=== PATIENT | male | born 1985 | race Caucasian/White ===

== ENCOUNTER 2021-08-17 11:03 | Outpatient (REF) | payer OTHER, SELFPAY ==
--- NOTE | ~2021-08-17 | XR_ITS ---
EXAMINATION: XR CERVICAL SPINE CLINICAL INFORMATION: History of neck pain. COMPARISON: Prior radiographs from 03/01/2020. TECHNIQUE: 3 views of the cervical spine were obtained. FINDINGS: The craniocervical junction is normal. The dens and atlantodental articulation are intact. The cervical vertebra have normal height. Alignment is normal. No fracture, subluxation or prevertebral soft tissue swelling. There is chronic lack of lordotic curvature of the degenerated cervical spine. Dqtz-oc-[id number] disc space narrowing and osteophyte formation at C5-C6 and C6-C7. The facet joints are unremarkable. The visualized lung apices are normal. XR/XR cervical spine 3V IMPRESSION: Chronic discovertebral degenerative changes at C5-C6 and C6-C7. The degenerative arthropathy of the cervical spine has a stable appearance compared to 03/01/2020. No new abnormality. There is chronic lack of lordotic fracture of the degenerated spine.
== END 2021-08-17 11:04 | disposition home or self-care (01) ==
LOC: HO.HMGCX 11:03
PROVIDERS: PCP Nurse Practitioner Family; Visit Provider Nurse Practitioner Family
DX: M50.90 Cervical disc disorder, unspecified, unspecified cervical region (principal)
CPT/HCPCS: 72040

== ENCOUNTER 2021-11-07 17:00 | Outpatient (RCR) | payer OTHER, SELFPAY ==
--- NOTE | 2021-09-26 17:26 | MHC.PT.EP ---
[facility] [place] Office [place] Office [place] Office [address] [place] [address] [phone] F: [phone] F: [phone] F: [phone] F: [phone] Physical Therapy Plan of Care Date of Evaluation: Date of Surgery: Diagnosis: This a a 35 yo male presenting to skilled PT with a script for cervical disc disorder Assessment: This a a 35 yo male presenting to skilled PT with a script for cervical disc disorder. Patient reporting symptoms ongoing for about 4 months now. He reports that he had stiffness prior but his symptoms got worse one night when rolling in bed (using 1 pillow to sleep). Pain is located from c-spine around C7 into the thoracic spine around T5 centralized (achy) but can radiate into B UTs/burning). He used to get a tingling sensation in the R side finger tips but this has resolved for about 2 weeks. He reports daily headaches localized to the R orbital lobe. Pain increases with sitting and sleeping. He reports pain improves with self cervical manipulation. Assessment reveals pain that ranges up to a 4/10. He demos decreased cervical, thoracic and R shoulder ROM, decreased R shoulder and scapular strength, impaired resting posture with forward head and rounded shoulders, impaired R shoulder, cervical and thoracic joint mobility as well as gross functional decline with sitting and sleeping. He is a good candidate for skilled PT 2x/wk for 6wks. Frequency and Duration: The patient will be seen 2x/wk for 6wks Short Term Goals: I in HEP Demo proper cervical alignment and posture with ther-ex, no PT cuing Demo proper cervical retraction in sitting without PT cuing Half-Way Goals: Demo normal cervical AROM without pain Improve pain to no more than 2/10 at the worst Improve NDI by 10 points Tolerate sleeping through the night without waking from pain Demo at least 4+/5 scapular and shoulder strength Return to full push up without pain Treatment Plan: Modalities to reduce pain, spasms and effusion. Manual therapy to restore motion and function. Therapeutic exercise to improve strength and flexibility. Neuromuscular re-education for posture and balance. Therapeutic activities to return to functional activities of daily living. Electronically signed by: Dolores Vazquez PT Please sign and return to therapist. Thank you for your referral.
--- NOTE | 2021-12-05 16:01 | MHC.PT.DC ---
[facility] [place] Office [place] Office [place] Office [address] [phone] F: [phone] F: [phone] F: [phone] F: [phone] Physical Therapy Discharge Report Diagnosis: This a a 35 yo male presenting to skilled PT with a script for cervical disc disorder Date of Surgery: Date of Evaluation: 09/26/21 Date of Discharge: 12/05/21 Treatments to Date: 10 Cancellations to Date: 0 No Shows to Date: 0 Discharge Status: Patient Elected to Stop Recommend MD Follow-up Discharge Summary: 11/07: reports that he enjoys therapy because he gets relief for a little while however pain returns the next day. He has not found this to be long lasting relief. I educated him on his options and visits left. At this time he reports that he wants further imaging but wouldn't mind continuing therapy if needed. He rates his pain good to bad 5-10/10. He reports pain with R rotation still and L lateral flexion. Demos 40 degs L lateral flexion, 50 R, 60 degs ext, 55 flexion, 65 L rotation and 60 R. Pain with end range with most motions except flexion and L rotation. He is still very tender to palpate at the L cervical spine and muscles. At this time we will wait to see when he can be reassessed by MD and then plan from there. Patient is in agreement. Continued ed on home tx options of traction and tens unit. NDI was 15. Patient decided to place therapy on hold. I kept his chart open for 30 days prior to DC. Electronically signed by: Dolorse Vazquez PT Please sign and return to therapist. Thank you for your referral.
== END 2021-12-05 16:01 | disposition home or self-care (01) ==
LOC: HO.PTCHIC 17:00
PROVIDERS: Visit Provider Nurse Practitioner Family
DX: M50.90 Cervical disc disorder, unspecified, unspecified cervical region (principal)
CPT/HCPCS: 97012; 97014; 97110; 97140; 97162

== ENCOUNTER 2022-02-22 07:31 | Outpatient (REF) | payer OTHER, SELFPAY ==
--- NOTE | ~2022-02-22 | MR_ITS ---
EXAMINATION: MR CERVICAL SPINE WITHOUT CONTRAST CLINICAL INFORMATION: Difficulty turning head to right side. Neck pain. Tingling in right upper extremity. COMPARISON: X-ray cervical spine dated 08/17/2021. TECHNIQUE: MRI of the cervical spine was obtained using routine sequences without contrast. FINDINGS: VERTEBRAL BODIES AND PARASPINAL SOFT TISSUES: The marrow signal is homogeneous. There is moderate disc space narrowing at the C6-C7 level and milder disc space narrowing at the C5-C6 level. No compression fractures or subluxations visible. Mild endplate edematous changes noted posteriorly at the C6-C7 level. The paraspinal soft tissues are unremarkable. The vertebral artery flow voids are maintained. The imaged lung apices are grossly clear. CERVICOMEDULLARY JUNCTION AND VISUALIZED POSTERIOR FOSSA: The craniovertebral junction and imaged portions of the brain parenchyma appear normal. There is mild prominence of the nasopharyngeal soft tissues which are otherwise fairly homogeneous in signal. No cord signal abnormality or syrinx identified. SPINAL LEVELS: C2-C3: Mild uncovertebral joint spurring. No focal disc protrusion, central canal stenosis, or foraminal narrowing. C3-C4: Mild disc bulge present without central canal stenosis or foraminal encroachment. Mild uncovertebral joint spurring. C4-C5: Broad-based posterior disc bulge mildly impressing upon the ventral cord and thecal sac without central canal stenosis or foraminal narrowing. C5-C6: Broad-based disc-osteophyte complex with moderate central canal stenosis and xvra-et-[id number] cord distortion. No intramedullary signal change. Severe bilateral foraminal narrowing, worse on the right side. C6-C7: Left paracentral disc protrusion superimposed upon a disc-osteophyte complex. Additional right subarticular zone disc protrusion which may impress upon the right C7 nerve root. [id number] central canal stenosis with ventral cord deformity. Severe foraminal narrowing, worse on the right side. C7-T1: No disc pathology, central canal stenosis, or foraminal narrowing. Mild facet arthropathy. MR/MR cervical spine wo con IMPRESSION: Multilevel cervical spondylosis, most significant at the C5-C6 level with moderate central canal stenosis and rgqz-ua-afbldtsw cord distortion. Severe bilateral foraminal narrowing. Left paracentral disc protrusion and disc-osteophyte complex with [id number]-pm-rwiwzcff central canal stenosis at the C6-C7 level. Additional right subarticular zone disc protrusion potentially impressing upon the right C7 nerve root. Severe foraminal narrowing.
== END 2022-02-22 07:32 | disposition home or self-care (01) ==
LOC: HO.MRI 07:31
PROVIDERS: Visit Provider Nurse Practitioner Family
DX: M50.90 Cervical disc disorder, unspecified, unspecified cervical region (principal)
CPT/HCPCS: 72141